=== PATIENT | male | born 1985 | race Caucasian/White ===

== ENCOUNTER 2017-03-04 14:15 | Emergency (ER) | payer MEDICAID ==
[~2017-03-04] VITALS: Ht 190.5 cm; Wt 90.5 kg
[2017-03-04] MEDS ORDERED: CARBAMIDE PEROXIDE 6.5% 15 ML OTIC SOLUTION AD ONE (15:30)
[2017-03-04 16:05] VITALS: BP 128/85
== END 2017-03-04 16:38 | disposition home or self-care (01) ==
LOC: EMS 14:18
DX: H61.21 Impacted cerumen, right ear (principal); F17.210 Nicotine dependence, cigarettes, uncomplicated; F11.90 Opioid use, unspecified, uncomplicated; F19.90 Other psychoactive substance use, unspecified, uncomplicated
CPT/HCPCS: 69209; 99282